=== PATIENT | female | born 2000 | race Caucasian/White ===

== ENCOUNTER → 2022-09-25 10:56 | Outpatient (BNVA) | payer MEDICAID, SELFPAY | PROVIDERS: PCP Nurse Practitioner Primary Care; Visit Provider Nurse Practitioner Family | DX: G43.009 Migraine without aura, not intractable, without status migrainosus (principal); R40.0 Somnolence; R06.83 Snoring | CPT/HCPCS: 99202 ==

== ENCOUNTER → 2022-10-09 | Outpatient (REF) | payer MEDICAID, SELFPAY | LOC: HO.SL | PROVIDERS: PCP Nurse Practitioner Primary Care; Visit Provider Nurse Practitioner Family | DX: G43.009 Migraine without aura, not intractable, without status migrainosus (principal); R40.0 Somnolence; R06.83 Snoring | CPT/HCPCS: 95806 ==

== ENCOUNTER → 2022-11-28 10:58 | Outpatient (BNVA) | payer MEDICAID, SELFPAY | PROVIDERS: PCP Nurse Practitioner Primary Care; Visit Provider Nurse Practitioner Family | DX: G43.009 Migraine without aura, not intractable, without status migrainosus (principal); R40.0 Somnolence; R06.83 Snoring; Z79.899 Other long term (current) drug therapy | CPT/HCPCS: 99212 ==